=== PATIENT | male | born 1955 | race Caucasian/White ===

== ENCOUNTER → 2018-01-06 07:35 | Outpatient (CLI) | payer MEDICARE ==
[2013-03-11 13:03] VITALS: BMI 24.0
[~2018-01-06 07:35] MED LIST: ALDACTONE25 MG PO; ALTACE5 MG; BAYER CHEWABLE81 MG PO; HYDROCODONE-APA1 TAB; KLONOPIN0.5 MG PO; PEPCID20 MG PO; TOPAMAX25 MG PO
[2018-01-16 08:32] VITALS: BMI 23.6
== END | disposition home or self-care (01) ==
LOC: D.MRI 07:35
DX: M54.16 Radiculopathy, lumbar region (principal)

== ENCOUNTER 2018-01-16 07:14 | Day surgery (SDC) | payer MEDICARE ==
[~2018-01-16] VITALS: Ht 172.7 cm; Wt 70.3 kg
--- NOTE | ~2018-01-16 | OP ---
PATIENT NAME: REMEDIOS SOLANO MEDICAL RECORD: [id number] :57 LOCATION:[facility] ADMISSION DATE: SURGEON: BROOKLYN BRAVO MD DATE OF OPERATION: 01/16/2018 PREOPERATIVE DIAGNOSES: Lumbar spinal stenosis and foraminal stenosis, L4-L5, left and disc protrusion L4-L5 left with neurogenic claudication secondary to lumbar spinal stenosis. POSTOPERATIVE DIAGNOSES: Lumbar spinal stenosis and foraminal stenosis, L4-L5, left and disc protrusion L4-5 left with neurogenic claudication secondary to lumbar spinal stenosis. PROCEDURE: Lumbar laminectomy, medial facetectomy, foraminotomy, sublaminar decompression L4-L5, discectomy L4-L5, left. SURGEON: Brooklyn Bravo MD DESCRIPTION OF TECHNIQUE: After induction of general endotracheal anesthesia, the patient was rolled prone on a Urbano frame. Lumbar spine was prepped and draped in usual sterile fashion. Fluoroscopic x-ray and spinal needle localized the L4-L5 interspace on the left side. A stab incision was created with a #11 blade and series of dilators was used to advance the METRx retractor to the L4-L5 interspace on the left side. Level was confirmed with fluoroscopic x-ray. A microscope and Midas Jean Pierre drill were used to perform a laminectomy, medial facetectomy, and foraminotomy at L4-L5 on the left. Hypertrophied ligamentum flavum was removed with Cloward rongeurs, the spinous process at L4 was undermined with a Midas-Jean Pierre drill and additional hypertrophied ligamentum flavum material was removed from the central canal. This appeared to relieve lumbar spinal stenosis and foraminal stenosis. The disc at L4-L5 was inspected and was found to compress the L5 nerve root ventrally. The disc space was incised. Disc material was removed with pituitary rongeurs and curettes. Following this, the L5 nerve root was decompressed well. Meticulous hemostasis was maintained throughout the wound. The wound was irrigated with copious amounts of Ancef irrigant solution. The retractor was removed. The fascia was closed with 2-0 Vicryl suture, the subdermal layer was closed with 3-0 Vicryl suture. The skin was closed with Steri-Strips and benzoin. A sterile dressing was applied to the wound. The patient was awakened in good condition, taken to recovery. All counts were reported as correct. Estimated blood loss was minimal. TRANSINT:[id number] Voice Confirmation ID: [id number] DOCUMENT ID: [id number] BROOKLYN BRAVO MD at 1557 CC: [id number] DICTATION DATE: 01/20/18 1203 RESIDENTIAL INTERIOR DESIGNER: 01/20/18 1423 [facility] 01/16/18 [place] [id number]
[2018-01-16] MEDS ORDERED: BAYER CHEWABLE81 MG PO (08:19)
[2018-01-16] MEDS ORDERED: ALTACE5 MG (08:20)
[2018-01-16] MEDS ORDERED: ALDACTONE25 MG PO (08:21)
[2018-01-16] MEDS ORDERED: TOPAMAX25 MG PO (08:22)
[2018-01-16] MEDS ORDERED: PEPCID20 MG PO (08:22)
[2018-01-16] MEDS ORDERED: KLONOPIN0.5 MG PO (08:23)
[2018-01-16] MEDS ORDERED: HYDROCODONE-APA1 TAB (08:24)
[2018-01-16 08:30] LABS: HEMATOCRIT 47.4 % (42.0-54.0); HEMOGLOBIN 16.3 g/dL (13.5-17.5); MCHC 34.4 g/dL (31.0-37.0); MEAN PLATELET VOLUME 8.6 fL (7.4-10.4); RBC 4.94 10x6/uL (4.20-6.10); RDW 13.8 % (11.5-14.5); WBC 15.5 10x3/uL (4.8-10.8)
[2018-01-16 08:32] VITALS: BP 129/78; Ht 172.7 cm; Wt 70.3 kg
== END 2018-01-16 17:33 | disposition home or self-care (01) ==
LOC: D.OPS 07:14
PROVIDERS: Anesthesiology
DX: M51.16 Intervertebral disc disorders with radiculopathy, lumbar region (principal); F17.200 Nicotine dependence, unspecified, uncomplicated; I25.10 Atherosclerotic heart disease of native coronary artery without angina pectoris; I10 Essential (primary) hypertension; K21.9 Gastro-esophageal reflux disease without esophagitis; Z01.812 Encounter for preprocedural laboratory examination

== ENCOUNTER 2018-05-08 07:45 | Observation (INO) | payer MEDICARE ==
[~2018-05-08] VITALS: Ht 172.7 cm; Wt 71.4 kg
[2018-05-08 10:00] VITALS: BP 111/54
[2018-05-08] MEDS ORDERED: SOMA350 MG PO (12:26)
[2018-05-08] MEDS ORDERED: KLOR-CON M2020 MEQ PO (12:27)
[2018-05-08 12:28] VITALS: Ht 172.7 cm; Wt 71.4 kg
[2018-05-08 12:53] VITALS: BP 104/50
[2018-05-08 15:45] VITALS: BP 105/57
[2018-05-08 21:00] VITALS: BP 107/58
[2018-05-09 02:55] VITALS: BP 98/45
[2018-05-09 05:05] LABS: BASOPHILS 0.1 % (0-2); EOSINOPHILS 0 % (0-7); HEMATOCRIT 41.8 % (42.0-54.0); HEMOGLOBIN 14.1 g/dL (13.5-17.5); IMMATURE GRANULOCYTES 0.4 % (0-5); LYMPHOCYTES 7.8 % (15-50); MCHC 33.7 g/dL (31.0-37.0); MEAN PLATELET VOLUME 9.3 fL (7.4-10.4); MONOCYTES 4.2 % (2-11); NEUTROPHILS 87.5 % (40-80); PLATELET COUNT 146 10x3/uL (130-400); RDW 12.7 % (11.5-14.5); WBC 18.3 10x3/uL (4.8-10.8)
[2018-05-09 06:05] VITALS: BP 113/59
[2018-05-09 06:26] VITALS: BP 113/55
[2018-05-09 09:25] VITALS: BP 106/57
[2018-05-09] MEDS ORDERED: NICODERM C1 PATCH .1 TRANSDERM (12:46)
== END 2018-05-09 13:41 | disposition home or self-care (01) ==
LOC: D.ER 07:45 → D.MS 08:47 → OBSVTIME 08:47 → D.EDHOLD 08:47 → D.MS 09:50
PROVIDERS: Family Medicine
DX: M50.222 Other cervical disc displacement at C5-C6 level (principal); M25.78 Osteophyte, vertebrae; I10 Essential (primary) hypertension; N17.9 Acute kidney failure, unspecified; D69.6 Thrombocytopenia, unspecified; F17.203 Nicotine dependence unspecified, with withdrawal

== ENCOUNTER 2018-10-18 19:18 | Inpatient (IN) | payer MEDICARE ==
[~2018-10-18] VITALS: Ht 172.7 cm; Wt 78.1 kg
[~2018-10-18 19:18] MED LIST changes: -ALTACE5 MG; +ALTACE5 MG PO; -HYDROCODONE-APA1 TAB; +KLOR-CON M2020 MEQ PO; +NICODERM C1 PATCH .1 TRANSDERM; +NORCO 10-325 TA1 TAB PO; +SOMA350 MG PO
[2018-10-18 20:16] LABS: BASOPHILS 0.3 % (0-2); EOSINOPHILS 3.5 % (0-7); HEMATOCRIT 49.2 % (42.0-54.0); HEMOGLOBIN 16.4 g/dL (13.5-17.5); IMMATURE GRANULOCYTES 0.6 % (0-5); LYMPHOCYTES 37.8 % (15-50); MCH 32.3 pg (26.0-34.0); MCHC 33.3 g/dL (31.0-37.0); MEAN PLATELET VOLUME 8.6 fL (7.4-10.4); MONOCYTES 13.4 % (2-11); NEUTROPHILS 44.4 % (40-80); PLATELET COUNT 125 10x3/uL (130-400); RBC 5.07 10x6/uL (4.20-6.10); RDW 13.2 % (11.5-14.5); WBC 6.6 10x3/uL (4.8-10.8)
[2018-10-18 20:48] LABS: ALBUMIN 4.1 g/dL (3.4-5.0); ANION GAP 15.9 mmol/L (8-16); BILIRUBIN - TOTAL 0.28 mg/dL (0.2-1.3); CARBON DIOXIDE 24.3 mmol/L (21.0-32.0); CREATININE - SERUM 1.1 mg/dL (0.6-1.3); POTASSIUM - SERUM 4.2 mmol/L (3.5-5.1); PROTEIN - SERUM 7.9 g/dL (6.4-8.2)
--- NOTE | 2018-10-18 21:44 | NUR ---
PT TRANSPORTED TO CT AT THIS TIME VIA WHEELCHAIR
[2018-10-18 22:01] LABS: INR 1.01 (0.85-1.17); PROTIME 12.8 SECONDS (11.6-15.0)
[2018-10-18 22:12] VITALS: BP 129/80
--- NOTE | 2018-10-18 22:13 | NUR ---
PT RETURNED FROM CT. NO DISTRESS NOTED. IV PATENT AND INFUSING NS AT BOLUS RATE AT THIS TIME. COLOR WNL FOR RACE. VSS. FAMILY MEMBER AT BEDSIDE. RESPIRATIONS ARE EVEN AND UNLABORED. WILL CONTINUE TO MONITOR PATIENT.
--- NOTE | 2018-10-18 23:39 | NUR ---
AWAITING SECOND SET OF BLOOD CULTURES TO BE DRAWN AT THIS TIME.
--- NOTE | 2018-10-19 00:34 | NUR ---
REPORT RECIEVED FROM ER.
--- NOTE | 2018-10-19 01:27 | NUR ---
0053 PT ARRIVED TO UNIT VIA WHEELCHAIR FROM ER. ALERT/ORIENTED AND ACCOMPANIED BY HIS SPOUSE. AMBULATORY. UP TO BED INDEPENDENTLY. IV TO RIGHT WRIST WITH IVF NS @ 125ML/HR INFUSING. IV ABT ZOSYN NOW COMPLETED. STILL DUE TO RECIEVE LEVAQUIN. ADMISSION ASSESSMENT AND HISTORY COMPLETED. HOME MEDS REVIEWED AND UPDATED. PLAN OF CARE REVIEWED. MONITOR AND MAINTAIN IN A SAFE ENVIRONMENT. GOING HOME FOR THE NIGHT. NOTED ORDER FOR TELEMETRY, ONE WILL BE INITIATED WHEN AVAILABLE. CALL LIGHT IN REACH.
[2018-10-19 01:34] VITALS: BMI 25.1
--- NOTE | 2018-10-19 02:18 | NUR ---
LEVAQUIN ABT NOW UP AND INFUSING. PT RESTING WITH EYES CLOSED. NO DISTRESS.
[2018-10-19 03:05] VITALS: BP 137/75
[2018-10-19 05:55] VITALS: BP 114/68
[2018-10-19 08:01] VITALS: BP 104/65
--- NOTE | 2018-10-19 09:43 | NUR ---
IV PATENT. CALL LIGHT IN REACH. WILL CONT. TO MONITOR NEEDS.
--- NOTE | 2018-10-19 09:48 | NUR ---
ASSESSMENT DONE. DENIES NEEDS
[2018-10-19 11:20] LABS: BASOPHILS 0 % (0-2); EOSINOPHILS 0 % (0-7); HEMATOCRIT 44.4 % (42.0-54.0); IMMATURE GRANULOCYTES 0.2 % (0-5); LYMPHOCYTES 16.6 % (15-50); MCHC 33.8 g/dL (31.0-37.0); MEAN PLATELET VOLUME 8.9 fL (7.4-10.4); MONOCYTES 2.8 % (2-11); NEUTROPHILS 80.4 % (40-80); PLATELET COUNT 138 10x3/uL (130-400); RBC 4.69 10x6/uL (4.20-6.10); RDW 12.6 % (11.5-14.5); WBC 5.4 10x3/uL (4.8-10.8)
[2018-10-19 11:23] VITALS: BP 142/80
[2018-10-19 11:26] LABS: MCV 94.7 fL (80.0-100.0)
[2018-10-19 11:34] LABS: ANION GAP 15.6 mmol/L (8-16); CALCIUM 8.6 mg/dL (8.5-10.1); CARBON DIOXIDE 22.5 mmol/L (21.0-32.0); CREATININE - SERUM 1.2 mg/dL (0.6-1.3); POTASSIUM - SERUM 4.1 mmol/L (3.5-5.1)
[2018-10-19 12:40] VITALS: Ht 172.7 cm; Wt 78.1 kg
--- NOTE | 2018-10-19 14:07 | NUR ---
REFUSED SCD'S PER JANEL/NUVIA
[2018-10-19 15:46] VITALS: BP 109/57
[2018-10-19 17:00] VITALS: BP 130/72
--- NOTE | 2018-10-19 17:09 | NUR ---
WITHOUT CHANGES OR DISTRESS NOTED AT THIS TIME. DENIES NEEDS.
--- NOTE | 2018-10-19 19:45 | NUR ---
INITIAL ROUNDS, PT WANTING IV DISCONNECTED SO HE CAN TAKE A SHOWER. IV SALINE LOCKED. COTTON INSPECTOR ASSISTED TO SET UP FOR SHOWER. FAMILY X 1 AT BEDSIDE.
--- NOTE | 2018-10-19 20:45 | NUR ---
BEDTIME MEDS GIVEN. RESPIRATORY IN ROOM STARTING BREATHING TREATMENTS.
[2018-10-20] VITALS: BP 104/50
[2018-10-20 00:25] LABS: APPEARANCE CLEAR (CLEAR); BILIRUBIN NEGATIVE (NEGATIVE); COLOR STRAW (YELLOW); GLUCOSE 1000 mg/dL (NEGATIVE); KETONE NEGATIVE (NEGATIVE); NITRITE NEGATIVE (NEGATIVE); PROTEIN NEGATIVE (NEGATIVE); SPECIFIC GRAVITY 1.005 (1.005-1.020); UROBILINOGEN NORMAL (NORMAL)
--- NOTE | 2018-10-20 03:48 | NUR ---
PT AWAKE WITH C/O SOB. O2 SAT 93%. RT TO ROOM TO ASSESS AND PROVIDED PRN BREATHING TREATMENT. UPON COMPLETION, PT RESTING MORE COMFORTABLY. MONITOR AND CPOC.
[2018-10-20 04:00] VITALS: BP 106/54
[2018-10-20 05:45] LABS: BASOPHILS 0.1 % (0-2); EOSINOPHILS 0 % (0-7); HEMATOCRIT 41.6 % (42.0-54.0); HEMOGLOBIN 13.9 g/dL (13.5-17.5); IMMATURE GRANULOCYTES 0.3 % (0-5); LYMPHOCYTES 9.8 % (15-50); MCH 31.7 pg (26.0-34.0); MCHC 33.4 g/dL (31.0-37.0); MEAN PLATELET VOLUME 9.3 fL (7.4-10.4); MONOCYTES 3.9 % (2-11); NEUTROPHILS 85.9 % (40-80); PLATELET COUNT 140 10x3/uL (130-400); RBC 4.38 10x6/uL (4.20-6.10)
[2018-10-20 06:06] LABS: WBC 14.4 10x3/uL (4.8-10.8)
[2018-10-20 06:12] LABS: ANION GAP 16.4 mmol/L (8-16); CALCIUM 8.3 mg/dL (8.5-10.1); CARBON DIOXIDE 21.2 mmol/L (21.0-32.0); CREATININE - SERUM 1.2 mg/dL (0.6-1.3); POTASSIUM - SERUM 3.6 mmol/L (3.5-5.1)
--- NOTE | 2018-10-20 07:20 | NUR ---
ASSESSMENT DONE. DENIES NEEDS.
[2018-10-20 09:10] VITALS: BP 118/58
--- NOTE | 2018-10-20 09:26 | NUR ---
RESTS IN BED WITH CALL LIGHT IN REACH. WILL CONT. TO MONITOR NEEDS.
[2018-10-20 11:53] VITALS: BP 124/60
[2018-10-20 15:52] VITALS: BP 112/69
[2018-10-20] MEDS ORDERED: IPRAT-ALBUT 0.5-3 ML UPD (15:53)
[2018-10-20 19:00] VITALS: BP 113/56
[2018-10-21] VITALS: BP 109/54
[2018-10-21 04:00] VITALS: BP 136/74
[2018-10-21 05:40] LABS: BASOPHILS 0.1 % (0-2); EOSINOPHILS 0 % (0-7); HEMOGLOBIN 12.6 g/dL (13.5-17.5); LYMPHOCYTES 14.6 % (15-50); MCH 31.6 pg (26.0-34.0); MCHC 33.2 g/dL (31.0-37.0); MCV 95.2 fL (80.0-100.0); MEAN PLATELET VOLUME 8.9 fL (7.4-10.4); MONOCYTES 7.8 % (2-11); NEUTROPHILS 76.5 % (40-80); PLATELET COUNT 140 10x3/uL (130-400); RBC 3.99 10x6/uL (4.20-6.10); RDW 13.3 % (11.5-14.5); WBC 14.6 10x3/uL (4.8-10.8)
[2018-10-21 06:10] LABS: CALCIUM 8.3 mg/dL (8.5-10.1); CARBON DIOXIDE 25.2 mmol/L (21.0-32.0); CHLORIDE - SERUM 107 mmol/L (98-107); CREATININE - SERUM 0.9 mg/dL (0.6-1.3); SODIUM 140 mmol/L (136-145); UREA NITROGEN 13 mg/dL (7-18); eGFR NON AFRICAN AMERICAN > 90 mL/min (90-120)
[2018-10-21 06:19] LABS: CALC OSMOLALITY 278 mosm/kg (275-300); GLUCOSE 105 mg/dL (74-106); POTASSIUM - SERUM 4.2 mmol/L (3.5-5.1)
[2018-10-21 07:38] LABS: IMMUNOGLOBULIN A 143 mg/dL (61-437); IMMUNOGLOBULIN G 851 mg/dL (700-1600)
[2018-10-21 07:55] VITALS: BP 124/58
--- NOTE | 2018-10-21 08:15 | NUR ---
ASSESSMENT DONE. DENIES NEEDS
[2018-10-21] MEDS ORDERED: LEVAQUIN750 MG PO (09:41)
[2018-10-21] MEDS ORDERED: PREDNISONE10 MG PO (09:42)
[2018-10-21] MEDS ORDERED: PROTONIX40 MG PO (09:42)
[2018-10-21] MEDS ORDERED: BENZONATATE200 MG PO (09:43)
[2018-10-21] MEDS ORDERED: ALBUTEROL2.5 MG/3 M INH (09:44)
--- NOTE | 2018-10-21 09:55 | NUR ---
NO NEEDS OR C/O VOICED. CALL LIGHT IN REACH. WILL CONT. PLAN OF CARE.
[2018-10-21 11:14] VITALS: BP 135/71
--- NOTE | 2018-10-21 12:38 | NUR ---
DC GIVEN TO PT
--- NOTE | 2018-10-21 12:43 | NUR ---
DC HOME PER PERSONAL CAR
--- NOTE | 2018-10-21 15:31 | MORECARE ---
CASE MANAGEMENT DISCHARGE SUMMARY PATIENT: REMEDIOS SOLANO SOUMYA UNIT: [id number] ADM DATE: 10/18/18 AGE: 63 : 57 SEX: M ROOM/BED: D.4517 AUTHOR: KATHERINEDOC PHYSICIAN: REFERRING PHYSICIAN: DEBRA CONKLIN MD DATE OF SERVICE: 10/21/18 Discharge Plan Patient Name: REMEDIOS SOLANO Facility: [facility]:[place] : 1955 Planned Disposition: Home Anticipated Discharge Date: 10/21/18 Discharge Date: 10/21/2018 Expected LOS: 3 Initial Reviewer: [email or web address] Initial Review Date: 10/21/2018 Generated: 10/21/18 4:31 pm Comments DCP- Discharge Planning Updated by [email or web address]: Nate Savage on 10/21/18 2:[address] Patient Name: REMEDIOS SOLANO Admission Status: ER Accout number: [id number] Admission Date: 10-18-2018 : 1955 Admission Diagnosis:SHORTNESS OF BREATH Attending: DEBRA CONKLIN Current LOS: 3 Anticipated DC Date: 10-21-2018 Planned Disposition: Home Primary Insurance: ab&jb properties and services Discharge Planning Comments: CM MET WITH PT IN ROOM TO DISCUSS DISCHARGE PLANNING AND NEEDS. PT REPORTS LIVING AT HOME INDEPENDENTLY WITH SPOUSE. PT HAS A NEBULIZER WITH NO MEDICAL EQUIPMENT PROVIDER PREFERENCE. PT HAS NO OUTSIDE SERVICES ASSISTING IN THE HOME. CM DISCUSSED AVAILABILITY OF HOME HEALTH, REHAB SERVICES AND MEDICAL EQUIPMENT. PT DENIES DISCHARGE NEEDS, REPORTS HIS WILL PICK HIM UP FOR DISCHARGE HOME. MEDICAL INSURANCE VERIFIER NURSE NOTIFIED Explosives Worker: Nate Savage DCPIA - Discharge Planning Initial Assessment Updated by [email or web address]: Nate Savage on 10/21/18 3:27 pm * Is the patient Alert and Oriented? Yes * How many steps to enter\exit or inside your home? * PCP DR. Stacie REILLY * Pharmacy [facility] [address] * Preadmission Environment Home with Family * ADLs Independent * Equipment Nebulizer * Other Equipment NO MEDICAL EQUIPMENT PROVIDER PREFERENCE * List name and contact numbers for known caregivers / representatives who currently or will assist patient after discharge: AMINATA SOLANO, SPOUSE, * Verbal permission to speak to the caregivers and representatives has been obtained from the patient. N/A * Community resources currently utilized None * Please name any agencies selected above. NONE * Additional services required to return to the preadmission environment? No * Can the patient safely return to the preadmission environment? Yes * Has this patient been hospitalized within the prior 30 days at any hospital? No Patient Name: REMEDIOS SOLANO Page [id number] at 1531 All edits/amendments must be made on the electronic document DICTATION DATE: 10/21/18 1531 SENIOR POWER SCHEDULER: ABRAHAM 10/21/18 1531 RPT#: [id number] DC DATE:10/21/18 STATUS: DIS IN [facility] [address] [place] [address] END OF REPORT
[2018-10-23 15:29] LABS: IMMUNOGLOBULIN E 73 IU/mL (0-100)
== END 2018-10-21 12:43 | disposition home or self-care (01) | DRG 194 ==
LOC: D.ER 19:18 → D.M2 23:07
PROVIDERS: Family Medicine; Internal Medicine Nephrology; Internal Medicine Pulmonary Disease; ADMIT Family Medicine
DX: J18.1 Lobar pneumonia, unspecified organism (principal); F17.213 Nicotine dependence, cigarettes, with withdrawal; R04.2 Hemoptysis; I10 Essential (primary) hypertension; K21.9 Gastro-esophageal reflux disease without esophagitis; J30.9 Allergic rhinitis, unspecified; K76.0 Fatty (change of) liver, not elsewhere classified; R04.0 Epistaxis; I45.6 Pre-excitation syndrome; G89.29 Other chronic pain; M54.2 Cervicalgia; J98.01 Acute bronchospasm